=== PATIENT | female | born 1965 | race Caucasian/White ===

== ENCOUNTER 2018-08-20 13:22 | Inpatient (IN) | payer MEDICARE ==
[~2018-08-20] VITALS: Ht 157.5 cm; Wt 160.8 kg
[~2018-08-20 13:22] MED LIST: ALBU3IS INH; CITA20 PO; CLIN300 PO; FURO40 PO; LEVFLO500 PO; Loratadine10 MG PO; POTA10T PO; Synthroid25 MCG PO
[2018-08-20 14:13] LABS: BASOPHILS ABSOLUTE AUTO 0.07 K/mm3 (0.00-0.23); BASOPHILS PERCENT AUTO 1 % (0-2); EOSINOPHILS PERCENT AUTO 3 % (0-6); Hematocrit 48.8 % (33.0-51.0); Hemoglobin 15.5 g/dL (11.5-16.0); IMMATURE GRAN ABSOLUTE AUTO 0.02 K/mm3 (0.00-0.10); IMMATURE GRAN PERCENT AUTO 0 % (0-1); LYMPHOCYTES ABSOLUTE AUTO 1.79 K/mm3 (0.84-5.20); LYMPHOCYTES PERCENT AUTO 29 % (21-46); MONOCYTES PERCENT AUTO 10 % (4-13); Mean Corpuscular HGB 34.8 pg (26.0-34.0); Mean Corpuscular HGB Conc 31.8 g/dL (31.5-36.5); Mean Corpuscular Volume 110 fL (80-100); Mean Platelet Volume 10.1 fL (9.1-12.4); NEUTROPHILS ABSOLUTE AUTO 3.59 K/mm3 (1.96-9.15); NEUTROPHILS PERCENT AUTO 57 % (41-73); Platelet Count 225 K/mm3 (150-400); RDW Coefficient Variation 15.1 % (11.7-14.2); Red Blood Cell Count 4.45 M/mm3 (3.80-5.20); White Blood Cell Count 6.27 K/mm3 (4.00-11.30)
[2018-08-20 14:39] LABS: Alanine Aminotransfer (ALT/SGP 178 U/L (12-78); Albumin, Blood 3.3 g/dL (3.4-5.0); Albumin/Globulin Ratio 0.8 (0.8-1.8); Alk Phos 120 U/L (50-136); Anion Gap 8 mmol/L (6-16); Aspartate Aminotrans (AST/SGOT 100 U/L (12-37); Bilirubin, Total 0.9 mg/dL (0.1-1.0); Blood Urea Nitrogen 15 mg/dL (8-24); CO2, Blood 27 mmol/L (21-32); Calcium, Blood 8.3 mg/dL (8.5-10.1); Chloride, Blood 105 mmol/L (98-108); Creatinine, Blood 0.58 mg/dL (0.40-1.00); Globulin, Blood 4.4 g/dL (2.2-4.0); Glomerular Filtration Rate >60 (60-); Glucose, Blood 107 mg/dL (70-99); Potassium, Blood 4.7 mmol/L (3.5-5.5); Sodium, Blood 140 mmol/L (136-145); Total Protein, Blood 7.7 g/dL (6.4-8.2)
--- NOTE | 2018-08-20 21:45 | NUR ---
PT ARRIVED TO UNIT VIA STRETCHER. AMBULATED TO BED INDEPENDENTLY. ASSUMING CARE OF PT.
[2018-08-20] MEDS ORDERED: ALBU90OI61 INH (21:58)
--- NOTE | 2018-08-21 06:46 | NUR ---
SHIFT SUMMARY: PT NEW ED ADMIT EARLIER IN SHIFT. A&O X 4, INDEPENDENT IN ROOM. SOB c EXERTION, ABLE TO WALK ABOUT 10 FT W/O BEING SOB. 2L VIA NC; CPAP @ NIGHT. LS WHEEZE T/O. CONT PULSE O2 IN PLACE; PT SATS IN HIGH 80s - LOW 90s. PSORIASIS NOTED TO BILAT LEGS, HANDS, AND FACE. C/O HEADACHE AND GENERALIZED BODY PAIN; PRN TYLENOL ADMINISTERED. 20G TO R. FOREARM SALINE LOCKED. NO OTHER ACUTE CHANGES TO REPORT. WILL CONT TO MONITOR AND PROVIDE CARE UNTIL PRESUMED BY ONCOMING RN.
[2018-08-21] MEDS ORDERED: Acetaminophen325 M1 PO (14:53)
[2018-08-21] MEDS ORDERED: AZIT250 PO (14:54)
[2018-08-21] MEDS ORDERED: CITA20 PO (14:55)
[2018-08-21] MEDS ORDERED: PRED10 PO (14:56)
--- NOTE | 2018-08-21 16:21 | NUR ---
DISCHARGE DISCHARGE MEDICATIONS AND INSTRUCTIONS EXPLAINED TO PATIENT AND PATIENT'S . THEY STATED UNDERSTANDING. IV REMOVED WITHOUT DIFFICULTY. BELONGINGS WITH PATIENT. PATIENT TRANSFERED TO PRIVATE VEHICLE VIA WHEELCHAIR.
== END 2018-08-21 16:19 | disposition home or self-care (01) | DRG 189 ==
LOC: ER 13:22 → ERHOLD 19:42 → MEDS 21:45
PROVIDERS: Physician Assistant; ADMIT Hospitalist
DX: J96.21 Acute and chronic respiratory failure with hypoxia (principal); J44.1 Chronic obstructive pulmonary disease with (acute) exacerbation; Z68.43 Body mass index [BMI] 50.0-59.9, adult; E66.01 Morbid (severe) obesity due to excess calories; G47.33 Obstructive sleep apnea (adult) (pediatric); F32.9 Major depressive disorder, single episode, unspecified; E03.9 Hypothyroidism, unspecified; Z99.81 Dependence on supplemental oxygen; Z87.891 Personal history of nicotine dependence; Z88.5 Allergy status to narcotic agent; Z88.2 Allergy status to sulfonamides; Z88.8 Allergy status to other drugs, medicaments and biological substances; Z88.1 Allergy status to other antibiotic agents; Z91.040 Latex allergy status; Z79.899 Other long term (current) drug therapy; Z91.14 Patient's other noncompliance with medication regimen
CPT/HCPCS: 36415; 71046; 80053; 83880; 85025; 93005; 93010; 94640; 94760; 94762; 96374; 99285-25; J1100; J1650; J2930